=== PATIENT | male | born 1945 | race Caucasian/White ===

== ENCOUNTER → 2019-08-24 | Outpatient (CLI) | payer OTHER ==
--- NOTE | 2019-08-24 17:01 | REP ---
Clinical: Cough . Comparison: 09/14/2010 . Technique: PA and lateral. Findings: The mediastinum and cardiac silhouette are normal. The lung arellano are clear and without acute consolidation, effusion, or pneumothorax. The skeletal structures are intact and normal. Impression: 1. No acute cardiopulmonary process. Electronically Signed by Rafael Mcnulty MD 08/24/2019 04:53 P
== END ==
LOC: M WUC 15:29
PROVIDERS: ATTEND Internal Medicine
DX: R05 Cough (principal)

== ENCOUNTER → 2020-01-16 | Outpatient (CLI) | payer MEDICARE ==
[~2020-01-16] MED LIST: ALLO100T PO; ASPI81TA26 PO; LOVA40TA PO; PRIL20TA2 PO
== END | disposition home or self-care (01) ==
LOC: M LABSMTC 10:51
PROVIDERS: ATTEND Anesthesiology
DX: Z01.818 Encounter for other preprocedural examination (principal)
CPT/HCPCS: C9803; U0003

== ENCOUNTER 2020-01-21 08:59 | Day surgery (SDC) | payer MEDICARE ==
[~2020-01-21] VITALS: Ht 165.1 cm; Wt 76.7 kg
[~2020-01-21 08:59] MED LIST changes: +NS 1,000 ML IV ONE
[2020-01-21] MEDS ORDERED: LIDOCAINE 2% 100MG/5ML SDV (FOR ANES.) As Ordered ONE (09:56)
[2020-01-21] MEDS ORDERED: propofoL 200 MG/20 ML VIAL As Ordered ONE (09:56)
--- NOTE | 2020-01-21 10:32 | ROOR ---
Patient Name: Chidi Persaud Procedure Date: 01/21/2020 10:05 AM Date of : 1945 Age: 74 Room: [facility] Gender: Male Note Status: Finalized Procedure: Colonoscopy Indications: High risk colon cancer surveillance: Personal history of colonic polyps, Incidental abdominal pain noted Providers: Adams DISLA MD Referring MD: DIPTI PIÑA MD Requesting Provider: Medicines: Monitored Anesthesia Care Complications: No immediate complications. Procedure: Pre-Anesthesia Assessment: - The heart rate, respiratory rate, oxygen saturations, blood pressure, adequacy of pulmonary ventilation, and response to care were monitored throughout the procedure. The Colonoscope was introduced through the anus and advanced to the terminal ileum, with identification of the appendiceal orifice and IC valve. The colonoscopy was performed without difficulty. The patient tolerated the procedure well. The quality of the bowel preparation was adequate. Findings: The perianal and digital rectal examinations were normal. A 5 mm polyp was found in the ascending colon. The polyp was sessile. The polyp was removed with a cold snare. Resection and retrieval were complete. Multiple small and large-mouthed diverticula were found in the sigmoid colon. There was evidence of diverticular spasm. Internal hemorrhoids were found during retroflexion. The hemorrhoids were moderate. The exam was otherwise without abnormality on direct and retroflexion views. Impression: - One 5 mm polyp in the ascending colon, removed with a cold snare. Resected and retrieved. - Moderate diverticulosis in the sigmoid colon. There was evidence of diverticular spasm. - Internal hemorrhoids. - The examination was otherwise normal on direct and retroflexion views. Recommendation: - Use fiber, for example Citrucel, Fibercon, Konsyl or Metamucil. - Repeat colonoscopy in 5 years for surveillance. Adams Disla MD Adams DISLA MD 01/21/2020 10:32:07 AM Electronically signed by Adams DISLA MD Number of Addenda: 0 Note Initiated On: 01/21/2020 10:05 AM Estimated Blood Loss: Estimated blood loss: none.
[2020-01-21 10:40] VITALS: BP 116/77
== END 2020-01-21 11:15 | disposition home or self-care (01) ==
LOC: M OPP 08:59
PROVIDERS: ATTEND Internal Medicine Gastroenterology
DX: Z12.11 Encounter for screening for malignant neoplasm of colon (principal); Z86.010 Personal history of colon polyps; D12.2 Benign neoplasm of ascending colon; K64.8 Other hemorrhoids; K57.30 Diverticulosis of large intestine without perforation or abscess without bleeding; G20 Parkinson's disease; Z79.82 Long term (current) use of aspirin; Z79.899 Other long term (current) drug therapy

== ENCOUNTER → 2020-06-04 | Outpatient (REF) | payer MEDICARE ==
[~2020-06-04] MED LIST changes: -NS 1,000 ML IV ONE
== END ==
LOC: M LAB REF 17:08
PROVIDERS: ATTEND Dermatology
DX: C44.321 Squamous cell carcinoma of skin of nose (principal)

== ENCOUNTER → 2023-12-28 | Outpatient (REF) | payer MEDICARE, OTHER | LOC: M SFHCDERM 17:50 | PROVIDERS: ATTEND Physician Assistant | DX: C44.329 Squamous cell carcinoma of skin of other parts of face (principal) ==